=== PATIENT | male | born 1990 | race Caucasian/White ===

== ENCOUNTER 2017-02-07 15:21 | Emergency (ER) | payer OTHER ==
[2017-02-07] MEDS ORDERED: Lactated Ringer's 1,000 ML IV ONE (16:02)
[2017-02-07] MEDS ORDERED: Lidocaine 102 MG in Sodium Chloride 0.9% 100 ML IV STA (16:02)
--- NOTE | 2017-02-07 16:32 | C.PDOC ---
History Of Present Illness NEW ONSET L BACK PAIN SINCE THIS MORNING. 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 PAIN LOCALIZED WORSE WHEN WALKING. +ASSOC NAUSEA. NOT ASSOC W POSITION CHANGE. HO PANCREATITIS "BUT CURRENT PAIN IS DIFFERENT THAN THAT". DENIES URINARY URGENCY, FREQ, HEMATURIA. NO FEVER, ABD PAIN. CURRENTLY "FEEL BETTER THAN BEFORE BUT STILL PRESENT". REQUESTING PAIN MED ONLY BC GOING ON FLIGHT TONIGHT TO DOMINIQUE. EXAM NONTOXIC ABD NEG BACK AROM WO DIFF NONTEND NO CVAT NEURO INTACT REMAINDER NEG MDM NO PRIOR RECORDS. PT ADVISED POSSIBILITY OF RECUR PANCREATITIS, RENAL COLIC OR BACK STRAIN. NEED FOR COMPLETE EVALUATION, CANNOT GIVE PAIN MED ONLY. ADVISED OF RISKS/BENEFITS, INCLUDING DISABILITY DETERIORATION AND . Time Seen by Provider: 02/07/17 16:01 Chief Complaint (Nursing): Male Genitourinary History Per: Patient History/Exam Limitations: no limitations Onset/Duration Of Symptoms: Sudden Onset (Since morning) Past Medical History Reviewed: Historical Data, Nursing Documentation, Vital Signs Vital Signs: Last Vital Signs Temp 98.3 F 02/07/17 16:30 Pulse 99 H 02/07/17 16:30 Resp 20 02/07/17 16:30 BP 139/99 H 02/07/17 16:30 Pulse Ox 98 02/07/17 16:30 - Medical History PMH: Pancreatitis Family History: States: No Known Family Hx - Social History Hx Alcohol Use: No Hx Substance Use: No Review Of Systems Except As Marked, All Systems Reviewed And Found Negative. Constitutional: Negative for: Fever, Chills Gastrointestinal: Positive for: Nausea. Negative for: Abdominal Pain Genitourinary: Negative for: Dysuria, Frequency, Hematuria Musculoskeletal: Positive for: Back Pain (Lower) Neurological: Negative for: Weakness, Numbness Physical Exam - Physical Exam Appears: Non-toxic, No Acute Distress Skin: Warm, Dry, No Rash Head: Atraumatic, Normacephalic Oral Mucosa: Moist Gastrointestinal/Abdominal: Normal Exam, Soft, No Tenderness, No Guarding, No Rebound Back: Normal Inspection, No CVA Tenderness Extremity: Normal ROM, No Swelling Neurological/Psych: Oriented x3, Normal Speech, Normal Motor ED Course And Treatment Reevaluation Time: 16:35 Reassessment Condition: Unchanged (PT EXPRESSES VERBAL UNDERSTANDING OF POTENTIAL CAUSES OF HIS SYMPTOMS, INCLUDING BUT NOT LIMITED TO RECURRENT PANCREATITIS, KIDNEY STONE. WILL GIVE TORADOL, AMA) Medical Decision Making Medical Decision Making: NOTE: NO PRIOR RECORDS. PT ADVISED POSSIBILITY OF RECUR PANCREATITIS, RENAL COLIC OR BACK STRAIN. NEED FOR COMPLETE EVALUATION, CANNOT GIVE PAIN MED ONLY. ADVISED OF RISKS/BENEFITS, INCLUDING DISABILITY DETERIORATION AND . Disposition Counseled Patient/Family Regarding: Diagnosis, Need For Followup - Disposition Referrals: YOUR,PMD [Other] Disposition: AGAINST MEDICAL ADVICE Disposition Time: 16:37 Condition: STABLE Additional Instructions: YOU HAVE EXPRESSED VERBAL UNDERSTANDING OF POTENTIAL CAUSES OF YOUR SYMPTOMS, INCLUDING BUT NOT LIMITED TO RECURRENT PANCREATITIS, KIDNEY STONE. YOU HAVE BEEN ADVISED AND OFFERED FULL EVALUATION INCLUDING BLOOD AND URINE TESTING AND RADIOLOGIC EVALUATION. YOU HAVE REFUSED FULL EVALUATION. FOLLOW UP WITH YOUR PMD PAYTON Instructions: Against Medical Advice (ED), Back Pain (ED) Forms: [employer] (South Korean) - Clinical Impression Clinical Impression: Back pain - Scribe Statement The provider has reviewed the documentation as recorded by the Nataibjosefa Noriega Provider Attestation: All medical record entries made by the Scribe were at my direction and personally dictated by me. I have reviewed the chart and agree that the record accurately reflects my personal performance of the history, physical exam, medical decision making, and the department course for this patient. I have also personally directed, reviewed, and agree with the discharge instructions and disposition.
[2017-02-07 16:37] VITALS: BP 139/99; PULSE 99; RESP 20; TEMP 98.3; O2SAT 98
== END 2017-02-07 16:52 | disposition left against medical advice (07) ==
LOC: C.ER 15:21
DX: M54.9 Dorsalgia, unspecified (principal)
CPT/HCPCS: 96372; 99284; J1885

== ENCOUNTER 2017-11-26 11:28 | Observation (INO) | payer OTHER ==
[2017-11-26 11:41] VITALS: BMI 21.4
[2017-11-26] MEDS ORDERED: Sodium Chloride 0.9% 1,000 ML IV ONE (12:16)
[2017-11-26] MEDS ORDERED: Sodium Chloride 0.9% 1,000 ML ONE ×2 (12:18→15:55)
[2017-11-26 12:33] LABS: BASO % 0.3 % (0.0-2.0); EOS # 0.1 K/uL (0.0-0.7); HEMOGLOBIN 14.4 g/dL (12.0-18.0); LYMPH # 2.1 K/uL (1.0-4.3); LYMPH % 15.4 % (20.0-40.0); MEAN CELL VOLUME 85.1 fL (80.0-94.0); MEAN CORPUSCULAR HEMOGLOBIN 28.8 pg (27.0-31.0); MEAN CORPUSCULAR HGB CONC 33.8 g/dL (33.0-37.0); MEAN PLATELET VOLUME 7.9 fL (7.2-11.7); MONO % 7.5 % (0.0-10.0); NEUT # 10.5 K/uL (1.8-7.0); NEUT % 75.8 % (50.0-75.0); NRBC % 0.1 % (0.0-2.0); RBC 4.99 Mil/uL (4.40-5.90); RED CELL DISTRIBUTION WIDTH 12.8 % (11.5-14.5); WHITE BLOOD COUNT 13.9 K/uL (4.8-10.8)
--- NOTE | 2017-11-26 12:40 | C.PDOC ---
History Of Present Illness 27 y/o male with hx pancreatitis, s/p pancreatic stent, c/o abdominal pain that started last night in epigastric area and markedly worsened this morning with episode of vomiting. pt took pain killer at home (?naproxen) with no relief,. no fever, no chills, no diarrhea. pt now feels pain in left side back, no urinary complaints. Chief Complaint (Nursing): Abdominal Pain History Per: Patient History/Exam Limitations: no limitations Onset/Duration Of Symptoms: Days (1) Current Symptoms Are (Timing): Worse Severity: Severe Pain Scale Rating Of: 8 Location Of Pain/Discomfort: Epigastric (left flank) Radiation Of Pain To:: Back, Flank Quality Of Discomfort: Sharp Associated Symptoms: Nausea, Vomiting. denies: Fever, Diarrhea, Urinary Symptoms Exacerbating Factors: None Alleviating Factors: None Past Medical History Reviewed: Historical Data, Nursing Documentation, Vital Signs Vital Signs: Last Vital Signs Temp 98.6 F 11/26/17 11:41 Pulse 78 11/26/17 11:41 Resp 20 11/26/17 11:41 BP 121/77 11/26/17 11:41 Pulse Ox 99 11/26/17 11:41 - Medical History PMH: Pancreatitis Other Surgeries: pancreatic stent Family History: States: Unknown Family Hx - Social History Hx Tobacco Use: No Hx Alcohol Use: No Hx Substance Use: No - Immunization History Hx Tetanus Toxoid Vaccination: No Hx Influenza Vaccination: No Hx Pneumococcal Vaccination: No Review Of Systems Constitutional: Negative for: Fever, Chills Cardiovascular: Negative for: Chest Pain Respiratory: Negative for: Cough, Shortness of Breath Gastrointestinal: Positive for: Nausea, Vomiting, Abdominal Pain. Negative for: Diarrhea Genitourinary: Negative for: Dysuria, Frequency, Hematuria Skin: Negative for: Rash Neurological: Negative for: Weakness, Numbness Physical Exam - Physical Exam Appears: In Acute Distress (from pain) Skin: Warm, Dry Head: Atraumatic, Normacephalic Oral Mucosa: Moist Neck: Supple Respiratory: Normal Breath Sounds, No Accessory Muscle Use, No Wheezing Gastrointestinal/Abdominal: Bowel Sounds, Tenderness (left flank andepigastric area, no ruq tednerness, neg murphys) Rectal: Deferred Extremity: Normal ROM Neurological/Psych: Oriented x3, Normal Speech, Normal Cognition ED Course And Treatment - Laboratory Results Result Diagrams: 11/26/17 12:23 10/11/18 12:23 O2 Sat by Pulse Oximetry: 99 Medical Decision Making Medical Decision Making: pt with flank/epigastric pain, similar to prior pancreatitis. labs, ivf, analgesic, ct scan, re-eval 1550 pt with no pain s/p toradil, ct shows acute on chrinic pancreatitis. will admot to Dr Nj, discussed with her. Disposition Discussed With : Nelly Nj Doctor Will See Patient In The: Hospital - Disposition Disposition: HOSPITALIZED Disposition Time: 15:50 Condition: GOOD Forms: [facility] (Hungarian) - Clinical Impression Clinical Impression: Acute pancreatitis
[2017-11-26 12:41] LABS: ALB/GLOB RATIO 1.7 (1.0-2.1); ALBUMIN 4.9 g/dL (3.5-5.0); ALT/SGPT 43 U/L (21-72); AMYLASE 135 U/L (30-110); AST/SGOT 27 U/L (17-59); BLOOD UREA NITROGEN 15 mg/dL (9-20); CALCIUM 10.3 mg/dl (8.6-10.4); GFR NON-AFRICAN AMERICAN > 60; LIPASE 749 U/L (23-300)
[2017-11-26] MEDS ORDERED: Iohexol 240 (50 ml) PO STA (12:47)
[2017-11-26 13:30] LABS: SQUAMOUS EPITHIAL 1 /hpf (0-5); URINE BILIRUBIN NEGATIVE (NEGATIVE); URINE BLOOD NEGATIVE (NEGATIVE); URINE CLARITY Clear (Clear); URINE COLOR Yellow (YELLOW); URINE GLUCOSE (UA) NORMAL (Normal); URINE LEUKOCYTE ESTERASE NEG Leu/uL (Negative); URINE PROTEIN NEGATIVE (NEGATIVE); URINE UROBILINOGEN NORMAL mg/dL (0.2-1.0)
[2017-11-26] MEDS ORDERED: Iodixanol 320 MG/ML 100 ML BOTTLE IV ONE (14:22)
--- NOTE | 2017-11-26 15:12 | CT ---
PROCEDURE: CT Abdomen and Pelvis with oral and IV contrast. HISTORY: abd pain COMPARISON: None available TECHNIQUE: Contiguous axial images of the abdomen and pelvis. Oral and IV contrast was administered. Coronal and Sagittal reformats generated and reviewed. Contrast dose: 100 cc Visipaque 320 Radiation dose: Total exam DLP = 365.06 mGy-cm. This CT exam was performed using one or more of the following dose reduction techniques: Automated exposure control, adjustment of the mA and/or kV according to patient size, and/or use of iterative reconstruction technique. FINDINGS: LOWER THORAX: No visible consolidation, pleural effusion, or pneumothorax. LIVER: Unremarkable. GALLBLADDER AND BILE DUCTS: Unremarkable. PANCREAS: Dilated pancreatic duct measures approximately 5 mm in diameter. Numerous coarse pancreatic calcifications suggest chronic pancreatitis. Peripancreatic inflammatory stranding raises concern for acute on chronic pancreatitis. SPLEEN: Unremarkable. ADRENALS: Unremarkable. KIDNEYS AND URETERS: The kidneys enhance symmetrically. No hydronephrosis or obstructing renal calculus. BLADDER: The urinary bladder appears unremarkable. REPRODUCTIVE: Unremarkable. APPENDIX: The appendix is not identified. No secondary signs of acute appendicitis. BOWEL: The stomach is nondistended. The bowel loops appear within normal limits of caliber without evidence of intestinal obstruction. Moderate diffuse constipation. PERITONEUM: No significant free fluid. No definite free air. LYMPH NODES: No bulky lymphadenopathy identified. VASCULATURE: No aortic aneurysm. BONES: No acute osseous abnormality is detected. OTHER FINDINGS: None. IMPRESSION: Dilated pancreatic duct measures approximately 5 mm in diameter. Numerous coarse pancreatic calcifications suggest chronic pancreatitis. Peripancreatic inflammatory stranding raises concern for acute on chronic pancreatitis. Correlate clinically including amylase and lipase levels. Moderate diffuse constipation.
[2017-11-26] MEDS ORDERED: Sodium Chloride 0.9% 1,000 ML IV SCH (16:00)
--- NOTE | 2017-11-26 18:09 | CP.PCM.HP ---
History of Present Illness - History of Present Illness History of Present Illness: pt came in for ac abd pain no vomiting lipase hi Present on Admission - Present on Admission Any Indicators Present on Admission: No Review of Systems - Review of Systems Systems not reviewed;Unavailable: Acuity of Condition - Constitutional Constitutional: As Per HPI - EENT Eyes: As Per HPI Ears: As Per HPI Nose/Mouth/Throat: As Per HPI - Cardiovascular Cardiovascular: As Per HPI - Respiratory Respiratory: As Per HPI - Gastrointestinal Gastrointestinal: Abdominal Pain Additional comments: lipas 700 - Genitourinary Genitourinary: As Per HPI - Reproductive: Male Reproductive:Male: As Per HPI - Musculoskeletal Musculoskeletal: As Per HPI - Integumentary Integumentary: As Per HPI - Neurological Neurological: As Per HPI - Psychiatric Psychiatric: As Per HPI - Endocrine Endocrine: As Per HPI - Hematologic/Lymphatic Hematologic: As Per HPI Past Patient History - Past Social History Smoking Status: Never Smoked - GASTROINTESTINAL Hx Pancreatitis: Yes - PSYCHIATRIC Hx Substance Use: No - SURGICAL HISTORY Other/Comment: ercp/pancreatic stents - ANESTHESIA Hx Anesthesia: Yes Hx Anesthesia Reactions: No Hx Malignant Hyperthermia: No Meds Allergies/Adverse Reactions: Allergies Allergy/AdvReac Type Severity Reaction Status Date / Time No Known Allergies Allergy Verified 11/26/17 11:39 Physical Exam - Constitutional Appears: Non-toxic, In Acute Distress - Head Exam Head Exam: NORMAL INSPECTION - Eye Exam Eye Exam: Normal appearance Pupil Exam: NORMAL ACCOMODATION - ENT Exam ENT Exam: Mucous Membranes Moist - Neck Exam Neck exam: Positive for: Full Rom - Respiratory Exam Respiratory Exam: Clear to Auscultation Bilateral - Cardiovascular Exam Cardiovascular Exam: REGULAR RHYTHM - GI/Abdominal Exam GI & Abdominal Exam: Normal Bowel Sounds, Tenderness - Rectal Exam Rectal Exam: NORMAL INSPECTION - Exam Exam: NORMAL INSPECTION - Extremities Exam Extremities exam: Positive for: normal inspection Results - Vital Signs Recent Vital Signs: Last Vital Signs Temp 99.1 F 11/26/17 16:41 Pulse 64 11/26/17 16:41 Resp 18 11/26/17 16:41 BP 107/71 11/26/17 16:41 Pulse Ox 98 11/26/17 16:41 - Labs Result Diagrams: 11/26/17 12:23 11/26/17 12:23 Labs: Laboratory Results - last 24 hr 11/26/17 11/26/17 11/26/17 12:23 12:23 13:02 WBC 13.9 H RBC 4.99 Hgb 14.4 Hct 42.5 MCV 85.1 MCH 28.8 MCHC 33.8 RDW 12.8 Plt Count 326 MPV 7.9 Neut % (Auto) 75.8 H Lymph % (Auto) 15.4 L [place] % (Auto) 7.5 Eos % (Auto) 1.0 Baso % (Auto) 0.3 Neut # (Auto) 10.5 H Lymph # (Auto) 2.1 [place] # (Auto) 1.0 H Eos # (Auto) 0.1 Baso # (Auto) 0.0 Sodium 141 Potassium 4.4 Chloride 102 Carbon Dioxide 26 Anion Gap 17 BUN 15 Creatinine 0.6 L Est GFR ( Amer) > 60 Est GFR (Non-Af Amer) > 60 Random Glucose 155 H Calcium 10.3 Phosphorus 3.3 Magnesium 1.8 Total Bilirubin 0.8 AST 27 ALT 43 Alkaline Phosphatase 74 Total Protein 7.8 Albumin 4.9 Globulin 2.9 Albumin/Globulin Ratio 1.7 Amylase 135 H Lipase 749 H Urine Color Yellow Urine Clarity Clear Urine pH 6.0 Ur Specific [place] 1.019 Urine Protein Negative Urine Glucose (UA) Normal Urine Ketones 1+ H Urine Blood Negative Urine Nitrate Negative Urine Bilirubin Negative Urine Urobilinogen Normal Ur Leukocyte Esterase Neg Urine WBC (Auto) 3 Urine RBC (Auto) 1 Ur Squamous Epith Cells 1 Assessment & Plan - Assessment and Plan (Free Text) Assessment: ac pancreatitis Plan: as per order - Date & Time Date: 11/26/17 Time: 18:10
[2017-11-26 20:19] VITALS: RESP 20
[2017-11-26] MEDS: Sodium Chloride 0.9% 1,000 ML IV SCH (21:00)
[2017-11-27] MEDS: Sodium Chloride 0.9% 1,000 ML IV SCH ×5 (01:00→11:33)
[2017-11-27 06:50] LABS: BASO % 0.2 % (0.0-2.0); EOS % 0.3 % (0.0-4.0); HEMOGLOBIN 13.3 g/dL (12.0-18.0); LYMPH # 1.5 K/uL (1.0-4.3); LYMPH % 14.8 % (20.0-40.0); MEAN CELL VOLUME 85.6 fL (80.0-94.0); MEAN CORPUSCULAR HEMOGLOBIN 29.5 pg (27.0-31.0); MEAN CORPUSCULAR HGB CONC 34.4 g/dL (33.0-37.0); MEAN PLATELET VOLUME 7.9 fL (7.2-11.7); MONO # 0.7 K/uL (0.0-0.8); NEUT # 7.8 K/uL (1.8-7.0); NEUT % 77.7 % (50.0-75.0); RBC 4.5 Mil/uL (4.40-5.90); RED CELL DISTRIBUTION WIDTH 12.9 % (11.5-14.5); WHITE BLOOD COUNT 10.1 K/uL (4.8-10.8)
[2017-11-27 07:05] LABS: ALB/GLOB RATIO 1.4 (1.0-2.1); ALBUMIN 3.7 g/dL (3.5-5.0); ALT/SGPT 36 U/L (21-72); AMYLASE 83 U/L (30-110); AST/SGOT 20 U/L (17-59); BLOOD UREA NITROGEN 7 mg/dL (9-20); CALCIUM 8.7 mg/dl (8.6-10.4); GFR NON-AFRICAN AMERICAN > 60; LIPASE 307 U/L (23-300)
[2017-11-27 09:16] VITALS: BP 109/68; PULSE 63; TEMP 100.2; O2SAT 99
--- NOTE | 2017-11-27 10:51 | CP.PCM.PN ---
Subjective - Date & Time of Evaluation Date of Evaluation: 11/27/17 Time of Evaluation: 10:48 - Subjective Subjective: pt feels beter no pain tolerated aple juicewants to go home Objective - Vital Signs/Intake and Output Vital Signs (last 24 hours): Temp Pulse Resp BP Pulse Ox 100.2 F H 63 20 109/68 99 11/27/17 08:00 11/27/17 08:00 11/27/17 08:00 11/27/17 08:00 11/27/17 08:00 Intake and Output: 11/27/17 11/27/17 06:59 18:59 Intake Total 1600 Balance 1600 - Medications Medications: Current Medications Sodium Chloride (Sodium Chloride 0.9%) 1,000 mls @ 200 mls/hr IV .Q5H [facility] Last Admin: 11/27/17 06:36 Dose: Not Given Influenza Virus Vaccine (Fluzone Quad [id number]) 60 mcg IM .ONCE ONE Stop: 11/29/17 10:01 Morphine Sulfate (Morphine) 2 mg IVP Q4 PRN PRN Reason: Pain, moderate (4-7) Pantoprazole Sodium (Protonix Inj) 40 mg IVP DAILY [facility] Last Admin: 11/27/17 09:13 Dose: 40 mg Pneumococcal Polyvalent Vaccine (Pneumovax 23 Vaccine) 0.5 ml IM .ONCE ONE Stop: 11/29/17 10:01 - Labs Labs: 11/27/17 06:41 11/27/17 06:41 - Constitutional Appears: Non-toxic - Head Exam Head Exam: NORMAL INSPECTION - Eye Exam Eye Exam: Normal appearance Pupil Exam: NORMAL ACCOMODATION - ENT Exam ENT Exam: Mucous Membranes Moist - Neck Exam Neck Exam: Normal Inspection - Respiratory Exam Respiratory Exam: Clear to Ausculation Bilateral - Cardiovascular Exam Cardiovascular Exam: REGULAR RHYTHM - GI/Abdominal Exam GI & Abdominal Exam: Soft, Normal Bowel Sounds - Extremities Exam Extremities Exam: Normal Inspection - Back Exam Back Exam: NORMAL INSPECTION - Neurological Exam Neurological Exam: Alert, Awake, Normal Gait, Oriented x3 - Psychiatric Exam Psychiatric exam: Normal Affect - Skin Skin Exam: Normal Color Assessment and Plan - Assessment and Plan (Free Text) Assessment: ac pancreatitis improving Plan: advance diet
--- NOTE | 2017-11-27 13:22 | CP.PCM.CON ---
History of Present Illness - History of Present Illness History of Present Illness: CC: pancreatitis HPI: 27 year old man admitted with acute back and abdominal pain, nausea. Found to have pancreatitis. Visiting from [place]. Known history of multiple episodes of pancreatitis in [place], likely due to altered pancreas anatomy, requiring pancreatic stent. CT shows evidence of chronic pancreatitis. Patient denies ETOH or smoking, or family history of pancreatitis. Patient believes current flareup is due to dietary indiscretion and increased recent fat intake. 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 He denies abdominal pain today. Review of Systems - Constitutional Constitutional: Anorexia. absent: Fever - EENT Eyes: absent: Change in Vision - Cardiovascular Cardiovascular: absent: Chest Pain - Respiratory Respiratory: absent: Dyspnea - Gastrointestinal Gastrointestinal: As Per HPI. absent: Melena - Musculoskeletal Musculoskeletal: As Per HPI, Back Pain - Integumentary Integumentary: absent: Jaundice - Neurological Neurological: absent: Headaches - Psychiatric Psychiatric: absent: Confusion Past Patient History - Past Social History Smoking Status: Never Smoked - GASTROINTESTINAL Hx Pancreatitis: Yes - PSYCHIATRIC Hx Substance Use: No - SURGICAL HISTORY Other/Comment: ercp/pancreatic stents - ANESTHESIA Hx Anesthesia: Yes Hx Anesthesia Reactions: No Hx Malignant Hyperthermia: No Meds Allergies/Adverse Reactions: Allergies Allergy/AdvReac Type Severity Reaction Status Date / Time No Known Allergies Allergy Verified 11/26/17 11:39 - Medications Medications: Current Medications Sodium Chloride (Sodium Chloride 0.9%) 1,000 mls @ 200 mls/hr IV .Q5H [facility] Last Admin: 11/27/17 11:33 Dose: 200 mls/hr Influenza Virus Vaccine (Fluzone Quad [id number]) 60 mcg IM .ONCE ONE Stop: 11/29/17 10:01 Morphine Sulfate (Morphine) 2 mg IVP Q4 PRN PRN Reason: Pain, moderate (4-7) Pantoprazole Sodium (Protonix Inj) 40 mg IVP DAILY [facility] Last Admin: 11/27/17 09:13 Dose: 40 mg Pneumococcal Polyvalent Vaccine (Pneumovax 23 Vaccine) 0.5 ml IM .ONCE ONE Stop: 11/29/17 10:01 Physical Exam - Constitutional Appears: Well, No Acute Distress - Head Exam Head Exam: ATRAUMATIC, NORMOCEPHALIC - Eye Exam Eye Exam: Normal appearance - ENT Exam ENT Exam: Normal Exam - Neck Exam Neck exam: Positive for: Normal Inspection - Respiratory Exam Respiratory Exam: NORMAL BREATHING PATTERN - Cardiovascular Exam Cardiovascular Exam: REGULAR RHYTHM - GI/Abdominal Exam GI & Abdominal Exam: Soft. absent: Distended, Guarding, Mass, Rebound, Tenderness Results - Vital Signs Recent Vital Signs: Last Vital Signs Temp 100.2 F H 11/27/17 08:00 Pulse 63 11/27/17 08:00 Resp 20 11/27/17 08:00 BP 109/68 11/27/17 08:00 Pulse Ox 99 11/27/17 08:00 - Labs Result Diagrams: 11/27/17 06:41 11/27/17 06:41 Labs: Laboratory Results - last 24 hr 11/26/17 11/27/17 11/27/17 13:02 06:41 06:41 WBC 10.1 RBC 4.50 Hgb 13.3 Hct 38.5 MCV 85.6 MCH 29.5 MCHC 34.4 RDW 12.9 Plt Count 262 MPV 7.9 Neut % (Auto) 77.7 H Lymph % (Auto) 14.8 L [place] % (Auto) 7.0 Eos % (Auto) 0.3 Baso % (Auto) 0.2 Neut # (Auto) 7.8 H Lymph # (Auto) 1.5 [place] # (Auto) 0.7 Eos # (Auto) 0.0 Baso # (Auto) 0.0 Sodium 138 Potassium 3.4 L Chloride 105 Carbon Dioxide 21 L Anion Gap 16 BUN 7 L Creatinine 0.6 L Est GFR ( Amer) > 60 Est GFR (Non-Af Amer) > 60 Random Glucose 105 Calcium 8.7 Total Bilirubin 0.8 AST 20 ALT 36 Alkaline Phosphatase 64 Total Protein 6.4 Albumin 3.7 Globulin 2.6 Albumin/Globulin Ratio 1.4 Amylase 83 Lipase 307 H Urine Color Yellow Urine Clarity Clear Urine pH 6.0 Ur Specific [place] 1.019 Urine Protein Negative Urine Glucose (UA) Normal Urine Ketones 1+ H Urine Blood Negative Urine Nitrate Negative Urine Bilirubin Negative Urine Urobilinogen Normal Ur Leukocyte Esterase Neg Urine WBC (Auto) 3 Urine RBC (Auto) 1 Ur Squamous Epith Cells 1 Assessment & Plan (1) Acute pancreatitis Assessment and Plan: Acute on chronic pancreatitis, likely exacerbated by dietary indiscretion. Acute episode is resolving with bowel rest and hydration May advance diet Pancreatic enzyme supplementation watermelon inspector If diet tolerated, may discharge. Patient understands he needs to return if symptoms recur. Discussed with BI REPORT DEVELOPER Status: Acute
--- NOTE | 2017-11-27 17:39 | CP.PCM.PN ---
Objective - Vital Signs/Intake and Output Vital Signs (last 24 hours): Temp Pulse Resp BP Pulse Ox 100.2 F H 63 20 109/68 99 11/27/17 08:00 11/27/17 08:00 11/27/17 08:00 11/27/17 08:00 11/27/17 08:00 Intake and Output: 11/27/17 11/27/17 06:59 18:59 Intake Total 1600 Balance 1600 - Labs Labs: 11/27/17 06:41 11/27/17 06:41 Assessment and Plan - Assessment and Plan (Free Text) Assessment: Patient admitted with pancreatitis, seen and examined. Tolerating diet , denies any pain or vomiting. Cleared by GI, discussed with DR Nj, plan to discharge home today. Advised to follow up with PMD and GI in 1 week.
[2017-11-29] MEDS ORDERED: Pneumococcal 23-Valent Vaccine IM ONE (10:00)
[2017-11-29] MEDS ORDERED: Influenza Vaccine 60 MCG/0.5 ML SYR (3 yr & up) IM ONE (10:00)
== END 2017-11-27 14:25 | disposition home or self-care (01) ==
LOC: C.ER 11:28 → C.9E 15:48 → C.3T 19:08
PROVIDERS: ADMIT Internal Medicine; ATTEND Internal Medicine
DX: K85.90 Acute pancreatitis without necrosis or infection, unspecified (principal)
CPT/HCPCS: 36415; 74177; 80053; 81001; 82150; 83690; 83735; 84100; 85025; 96360; 96374; 99285; C9113; G0378; J1885; J2270; J2405; J7030; Q9966; Q9967